=== PATIENT | female | born 1980 | race Caucasian/White ===

== ENCOUNTER 2019-02-09 07:09 | Day surgery (SDC) | payer MEDICAID ==
--- NOTE | 2019-02-07 15:00 | HP ---
HISTORY OF PRESENT ILLNESS: The patient is a 38-year-old female, who has a common-law marriage of 10 years, 8-year-old son, has had a supraumbilical midline ventral hernia present, worsening, bothersome to her. She has gained weight recently 50 pounds in the last year as a result of depression. She has been started on sertraline recently and feels much better in hopes to lose weight. She smokes half pack a day and is trying to stop smoking. She has obesity related to reflux. She has been started on antidepressants recently by Dr. Martinez Suarez. Plan is for robotic mesh repair ventral hernia, supraumbilical midline. She understands the risks of infection, bleeding, reoperation, and consents. We will plan this as an outpatient. I have encouraged her to lose weight and stop smoking. She is interested in bariatric surgery and we will inform her with our seminars. Her hernia is so bothersome to her and interfered with ability to work that she has been unable to work. 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 She wants the hernia repaired, so she can return to work and work on her weight loss. ALLERGIES: NONE. SOCIAL HISTORY: Tobacco, one-half pack per day. Alcohol, socially rarely. MEDICATIONS: 1. Omeprazole 20 mg a day. 2. Sertraline 50 mg a day. 3. Temazepam 15 mg a day. 4. Hydroxyzine 25 mg a day. PAST MEDICAL HISTORY: Anxiety, depression, tobacco use, and reflux. REVIEW OF SYSTEMS: Ten-point noncontributory. She is 7, para 5, 2 abortions. PHYSICAL EXAMINATION: VITAL SIGNS: Weight 245 pounds, height 64 inches, and BMI 43. Blood pressure 135/74, pulse 76, and temperature 97 degrees. HEAD, EYES, EARS, NOSE, AND THROAT: Unremarkable. LUNGS: Clear to auscultation. CARDIAC: Regular rate and rhythm without murmur or gallop. ABDOMEN: Soft, obese. Reducible ventral hernia above her umbilicus. ASSESSMENT AND PLAN: 1. Ventral hernia. We will plan robot mesh repair as an outpatient. She understands the risks, benefits, and consents. 2. Tobacco abuse. Encourage cessation. She wants to quit and will make efforts to do so. 3. Obesity, morbid, associated comorbidities of reflux. She will work on weight reduction and she thinks this will improve with her recent medications prescribed for her depression and anxiety. 4. Depression and anxiety. Job ID: [id number]
[2019-02-08 08:43] VITALS: BMI 40.8
[2019-02-09 07:56] LABS: #Basophils 0.1 thou/uL (0.0-0.2); #Monocytes 0.9 thou/uL (0.11-0.59); #Neutrophils 5.7 thou/uL (1.40-6.50); %Basophils 0.9 % (0.0-1.0); %Eosinophils 9.3 % (0.0-10.0); %Lymphocytes 28.5 % (21.0-51.0); %Neutrophils 53.4 % (42.0-75.0); Hemoglobin 10.6 g/dL (12.0-16.0); Mean Corpuscular HGB CONC 32.8 g/dL (32.0-36.0); Mean Corpuscular Hemoglobin 23.9 pg (27.0-31.0); Mean Platelet Volume 7.8 fL (7.4-10.4); Platelet Count 453 thou/uL (130-400); RBC Distribution Width 19.8 % (11.5-14.5); Red Blood Cell (RBC) Count 4.41 mill/uL (4.20-5.40); White Blood Cell (WBC) Count 10.6 thou/uL (4.8-10.8)
[2019-02-09 08:02] LABS: PTT 28.2 SEC (22.9-36.1); Prothrombin Time 13.1 SEC (12.0-14.7)
[2019-02-09] MEDS ORDERED: ceFAZolin Sodium (SDC) 2 GM/100 ML BAG ONE (08:02)
[2019-02-09] MEDS ORDERED: Ketorolac Tromethamine 30 MG/ML VIAL ONE (08:02)
[2019-02-09 08:04] LABS: BHCG - Serum Negative (NEGATIVE); Pregs Control Background? CLEAR/WHITE (CLR/WHITE); Pregs Control Bar Appear? YES (CONTROL BAR)
[2019-02-09 08:16] LABS: ALT (SGPT) 16 U/L (8-55); AST (SGOT) 12 U/L (5-34); Albumin 4.2 g/dL (3.5-5.0); Alkaline Phosphatase 73 U/L (40-150); Anion Gap 13 mmol/L (10-20); BUN (Urea Nitrogen) 12 mg/dL (7.0-18.7); Bilirubin, Direct 0.1 mg/dL (0.1-0.3); Bilirubin, Total 0.3 mg/dL (0.2-1.2); Calc. Creatinine Clearance 152 mL/min (70-130); Calcium 9.3 mg/dL (7.8-10.44); Carbon Dioxide 24 mmol/L (22-29); Chloride 106 mmol/L (98-107); Estimated GFR-MDRD 74; Glucose 96 mg/dL (70-105); Potassium 3.9 mmol/L (3.5-5.1); Protein, Total 7.6 g/dL (6.0-8.3); Sodium 139 mmol/L (136-145)
[2019-02-09] MEDS ORDERED: Midazolam HCl 2 mg/2 ml Vial ONE ×2 (08:19→11:53)
[2019-02-09 08:25] LABS: MDiff Complete? YES; Microcytosis SLIGHT = 6-15 cells (100X) (0-5/hpf); Platelet Morphology Comment Appears Increased; Polychromasia SLIGHT = 2-3 cells (100X) (0-2/hpf)
[2019-02-09] MEDS ORDERED: Bupivacaine/Epinephrine 0.25% 30 ML VIAL ONE (09:40)
[2019-02-09] MEDS ORDERED: Fentanyl 100 MCG/2 ML VIAL ONE ×3 (09:58→12:22)
--- NOTE | 2019-02-09 12:09 | OP ---
DATE OF PROCEDURE: 02/09/2019 PREOPERATIVE DIAGNOSES: 1. Umbilical hernia. 2. Morbid obesity. POSTOPERATIVE DIAGNOSES: 1. Umbilical hernia. 2. Morbid obesity. PROCEDURES PERFORMED: Robotic Ventralight 9 cm mesh, reinforcement of fascial closure, umbilical hernia repair. DESCRIPTION OF PROCEDURE: The patient was taken to the operating room, where under general anesthesia, abdomen was prepared with ChloraPrep and draped in routine fashion. Local anesthetic of 0.5% Marcaine with epinephrine 30 mL was infiltrated in the skin and subcutaneous tissue at each port site. Left subxiphoid incision was made. Pneumoperitoneum to 15 mmHg was obtained with a Veress needle, replacing with an 11 balloon port. Video laparoscope inserted. Bilateral far lateral subcostal incision made and an 8-mm ports placed. The robot was docked and robotic hernia repair undertaken freeing the falciform ligament and fatty tissue incarcerated in the umbilical hernia defect. The fascial edges identified and pneumoperitoneum reduced to 9 mmHg and fascia was approximated with continuous suture of #1 V-Loc suture. The mesh was then secured to the abdominal wall, reinforcing the fascial closure, securing the mesh with continuous suture of 2-0 V-Loc suture. Good hernia repair was undertaken. Pneumoperitoneum was reduced. All incisions were removed. All skin incisions were approximated with interrupted subdermal 4-0 Monocryl and Tecolotito glue applied. Job ID: [id number]
[2019-02-09] MEDS ORDERED: Ondansetron PF 4 MG/2 ML Vial ONE (16:49)
[2019-02-09] MEDS ORDERED: Dexamethasone 20 MG/5 ML VIAL ONE (16:49)
[2019-02-09] MEDS ORDERED: Lidocaine 1% PF 5 ML VIAL ONE (16:49)
[2019-02-09] MEDS ORDERED: Rocuronium Bromide 10 MG/ML (10ML VIAL) ONE (16:49)
[2019-02-09] MEDS ORDERED: PROPOFOL 200 MG/20 ML VIAL ONE (16:49)
[2019-02-09] MEDS ORDERED: Metoclopramide HCl 10 MG/2 ML VIAL ONE (16:49)
[2019-02-09] MEDS ORDERED: PHENYLEPHRINE-NS 100 MCG/ML 10 ML SYRINGE ONE (16:49)
[2019-02-09] MEDS ORDERED: Glycopyrrolate 0.2 MG/ML 5 ML SYRINGE ONE (16:49)
== END 2019-02-09 14:13 | disposition home or self-care (01) ==
LOC: SDC 07:09
PROVIDERS: ATTEND Specialist
PROC: 0WUF4JZ Supplement Abdominal Wall with Synthetic Substitute, Percutaneous Endoscopic Approach (ICD-10-PCS; principal; 2019-02-09)
DX: K42.0 Umbilical hernia with obstruction, without gangrene (principal); E66.01 Morbid (severe) obesity due to excess calories; F17.210 Nicotine dependence, cigarettes, uncomplicated; F41.9 Anxiety disorder, unspecified; F32.9 Major depressive disorder, single episode, unspecified; K21.9 Gastro-esophageal reflux disease without esophagitis; Z68.41 Body mass index [BMI] 40.0-44.9, adult; Z79.899 Other long term (current) drug therapy
CPT/HCPCS: 36415; 80048; 80076; 84703; 85025; 85610; 85730; C1781; J0131; J0690; J1885; J2250; J3010

== ENCOUNTER 2023-08-10 04:36 | Emergency (ER) | payer OTHER ==
[2023-08-10 06:23] LABS: SARS-CoV-2 NAA Rapid Test Not Detected (NotDetected)
== END 2023-08-10 07:11 | disposition home or self-care (01) ==
LOC: ERS 04:36
DX: J98.8 Other specified respiratory disorders (principal)
CPT/HCPCS: 71045; U0002